=== PATIENT | female | born 1980 | race Caucasian/White ===

== ENCOUNTER → 2016-11-11 | Outpatient (REF) | payer BC, OTHER ==
[~2016-11-11] MED LIST: /ACETCOD2T PO; /METH500TA PO; CYCL10TA3 PO; LIDO5OI EXT; SERT-138 PO; SUMA100T2 PO; trisprintec PO
== END ==
LOC: M SFHCCLAY 16:53
PROVIDERS: ATTEND Family Medicine
DX: D23.72 Other benign neoplasm of skin of left lower limb, including hip (principal)

== ENCOUNTER → 2017-04-07 | Outpatient (CLI) | payer OTHER ==
[2017-04-07 13:55] LABS: CONTROL LINE HCG INT CTR LINE PRESENT; HCG, SERUM QUALITATIVE POSITIVE (NEGATIVE)
[2017-04-07 14:28] LABS: HCG, SERUM QUANTITATIVE 7886 MIU/ML
== END ==
LOC: M LAB 13:16
DX: N92.6 Irregular menstruation, unspecified (principal)
CPT/HCPCS: 84703

== ENCOUNTER → 2017-10-12 | Outpatient (CLI) | payer OTHER | LOC: M RAD 07:09 | DX: Z34.83 Encounter for supervision of other normal pregnancy, third trimester (principal); Z3A.31 31 weeks gestation of pregnancy | CPT/HCPCS: 76820 ==

== ENCOUNTER → 2017-10-19 | Outpatient (CLI) | payer OTHER ==
[2017-10-19 08:28] LABS: GLUCOSE, FASTING 91 MG/DL (LESS THAN 95)
[2017-10-19 09:54] LABS: 1 HR GLUCOSE 154 MG/DL (LESS THAN 180)
[2017-10-19 11:00] LABS: 2 HR GLUCOSE 134 MG/DL (LESS THAN 155)
[2017-10-19 11:54] LABS: 3 HR GLUCOSE 135 MG/DL (LESS THAN 140)
== END ==
LOC: M LAB 07:31
DX: O99.810 Abnormal glucose complicating pregnancy (principal); Z3A.00 Weeks of gestation of pregnancy not specified
CPT/HCPCS: 82951

== ENCOUNTER → 2018-09-05 | Outpatient (REF) | payer OTHER ==
[~2018-09-05] MED LIST changes: -/ACETCOD2T PO; -/METH500TA PO; +ACET1TAB15 PO; +LIDO1OIN2 EXT; -LIDO5OI EXT; +METH1TAB40 PO
== END ==
LOC: M LAB LCGH 14:05
PROVIDERS: ATTEND Nurse Practitioner Family
DX: D48.9 Neoplasm of uncertain behavior, unspecified (principal)

== ENCOUNTER → 2018-12-27 | Outpatient (CLI) | payer OTHER ==
[2018-12-27 17:00] LABS: HEMATOCRIT 42.9 % (36.0-47.0); HEMOGLOBIN 13.5 g/dl (12.0-15.5); MEAN CORPUSCULAR HEMOGLOBIN 26.4 pg (27.0-33.0); MEAN CORPUSCULAR HGB CONC 31.5 g/dl (32.0-36.5); MEAN CORPUSCULAR VOLUME 83.8 fl (80.0-96.0); PLATELET COUNT, AUTOMATED 218 10^3/uL (150-450); RED BLOOD COUNT 5.12 10^6/uL (4.00-5.40); WHITE BLOOD COUNT 5.5 10^3/uL (4.0-10.0)
[2018-12-27 17:33] LABS: BLOOD UREA NITROGEN 10 MG/DL (7-18); CALCIUM LEVEL 9.1 MG/DL (8.5-10.1); CARBON DIOXIDE LEVEL 29 MEQ/L (21-32); CHLORIDE LEVEL 105 MEQ/L (98-107); CREATININE FOR GFR 0.87 MG/DL (0.55-1.30); GLOMERULAR FILTRATION RATE > 60.0 (>60); GLUCOSE, FASTING 78 MG/DL (70-100); POTASSIUM SERUM 4.4 MEQ/L (3.5-5.1); SODIUM LEVEL 140 MEQ/L (136-145)
== END ==
LOC: M WUC 12:21
PROVIDERS: ATTEND Family Medicine
DX: F41.9 Anxiety disorder, unspecified (principal)

== ENCOUNTER → 2019-08-02 | Outpatient (CLI) | payer OTHER ==
[~2019-08-02] MED LIST changes: +DEBL1TAB PO; +VENL75TA2 PO; +VITA50005 PO
== END ==
LOC: M LABSMTC 10:11
PROVIDERS: ATTEND Anesthesiology
DX: Z01.818 Encounter for other preprocedural examination (principal); Z11.59 Encounter for screening for other viral diseases

== ENCOUNTER 2019-08-04 06:47 | Day surgery (SDC) | payer OTHER ==
[~2019-08-04] VITALS: Ht 165.1 cm; Wt 66.6 kg
[2019-08-04 07:34] LABS: HEMATOCRIT 40.8 % (36.0-47.0); HEMOGLOBIN 13.1 g/dl (12.0-15.5); MEAN CORPUSCULAR HEMOGLOBIN 26.6 pg (27.0-33.0); MEAN CORPUSCULAR HGB CONC 32.1 g/dl (32.0-36.5); MEAN CORPUSCULAR VOLUME 82.8 fl (80.0-96.0); PLATELET COUNT, AUTOMATED 205 10^3/uL (150-450); RED BLOOD COUNT 4.93 10^6/uL (4.00-5.40); WHITE BLOOD COUNT 4.8 10^3/uL (4.0-10.0)
[2019-08-04] MEDS ORDERED: MIDAZOLAM INJ 2MG/2ML VIAL (J2250 PER 1MG) As Ordered ONE (08:08)
[2019-08-04] MEDS ORDERED: LIDOCAINE 2% 100MG/5ML SDV (FOR ANES.) As Ordered ONE (08:08)
[2019-08-04] MEDS ORDERED: propofoL 200 MG/20 ML VIAL As Ordered ONE ×2 (08:08→09:33)
[2019-08-04] MEDS ORDERED: fentaNYL 100 MCG/2 ML INJECTION (J3010) As Ordered ONE (08:08)
[2019-08-04] MEDS ORDERED: ROCURONIUM BROMIDE 50 MG/5 ML VIAL As Ordered ONE (08:08)
[2019-08-04] MEDS ORDERED: BUPIVACAINE/EPIN 0.25% 30 ML VIAL As Ordered ONE (08:34)
[2019-08-04] MEDS ORDERED: BUPIVACAINE HCL 0.25% 30ML VIAL As Ordered ONE (08:35)
[2019-08-04] MEDS ORDERED: KETOROLAC 60 MG/2 ML VIAL As Ordered ONE (09:05)
[2019-08-04] MEDS ORDERED: METOCLOPRAMIDE INJ 10MG/2ML VIAL (J2765 PER 1) As Ordered ONE (09:05)
[2019-08-04] MEDS ORDERED: ONDANSETRON 4MG/2ML VIAL As Ordered ONE (09:05)
[2019-08-04] MEDS ORDERED: ACETAMINOPHEN 1000MG 100ML IV BTL (OFIRMEV) (J0131 PER 10MG) As Ordered ONE (09:05)
[2019-08-04] MEDS ORDERED: dexameTHASONE 4 MG/ML 1ML VIAL (J1100 PER 1MG) As Ordered ONE (09:05)
[2019-08-04] MEDS ORDERED: SUGAMMADEX SODIUM 500 MG/5 ML VIAL (BRIDION) As Ordered ONE ×2 (09:24→09:25)
[2019-08-04] MEDS ORDERED: LR 1,000 ML IV SCH (10:00)
[2019-08-04] MEDS ORDERED: fentaNYL 100 MCG/2 ML INJECTION (J3010) IV PRN (10:00)
[2019-08-04] MEDS ORDERED: oxyCODONE 5MG TAB PO PRN (10:00)
[2019-08-04] MEDS ORDERED: HYDROMORPHONE HCL 0.5 MG/ 0.5 ML SYRINGE (J1170 PER 1) IV PRN (10:00)
[2019-08-04] MEDS ORDERED: ONDANSETRON 4MG/2ML VIAL IV PRN (10:00)
[2019-08-04] MEDS ORDERED: PERCOCET 5MG/325MG TAB PO PRN (10:15)
[2019-08-04 11:23] VITALS: BP 109/71
[2019-08-04] MEDS ORDERED: IBUPROFEN 800 MG TAB PO SCH (15:00)
--- NOTE | 2019-08-08 15:37 | RO ---
DATE OF PROCEDURE: 08/04/2019 Lisa is a 38-year-old female multiparity who desires permanent tubal sterilization. After counseling in the office, a decision was made for bilateral tubal ligation in the form of removing the entire tube. PREOPERATIVE DIAGNOSIS: Multiparity, desires permanent sterilization. POSTOPERATIVE DIAGNOSIS: Multiparity, desires permanent sterilization. PROCEDURE: Bilateral salpingectomy. SURGEON: Dr. Bertrand Baron. ANESTHESIA: General. COMPLICATIONS: None. ESTIMATED BLOOD LOSS: Less than 10 mL. SPECIMEN SENT TO THE LAB: Bilateral tubes. FINDINGS: Normal-appearing tubes and ovaries, retroverted uterus. DESCRIPTION OF PROCEDURE: After obtaining informed consent, the patient was taken to the operating room where general anesthetic was found to be adequate. She was then draped and prepped in the usual sterile fashion in the dorsal lithotomy position. At this point a Zuñiga catheter was placed in the bladder for drainage. A uterine manipulator was placed. We then turned our attention to the abdomen where a 5 mm infraumbilical incision was made. Using the Veress needle the abdomen was insufflated with CO2 gas to approximately 3.5 liters. We then placed a 5 mm scope then an 8 mm right lateral port was placed. The patient was placed in Trendelenburg. The fallopian tubes were identified using the CHARLY Harmonic scalpel. The fallopian tubes were removed from the fimbriated all the way up to the cornual area. Both tubes were removed and sent to pathology. Good hemostasis noted. Pelvis copiously irrigated with normal saline and suctioned out. Attention then turned to the abdomen where trocars were removed. The incisions were closed using #3-0 Vicryl and Dermabond 0.25% Marcaine was placed for postoperative pain. The patient tolerated procedure well. She was then transferred to recovery room in stable condition.
== END 2019-08-04 11:30 | disposition home or self-care (01) ==
LOC: M SDC 06:47
PROVIDERS: ATTEND Obstetrics & Gynecology
DX: Z30.2 Encounter for sterilization (principal); F41.9 Anxiety disorder, unspecified; F32.9 Major depressive disorder, single episode, unspecified; Z88.5 Allergy status to narcotic agent; Z88.8 Allergy status to other drugs, medicaments and biological substances
CPT/HCPCS: 36415; 58661; 81025; 85027; 86850; 86900; 86901; 88302; J0131; J1100; J1885; J2250; J2405; J2765; J3010

== ENCOUNTER → 2020-08-16 | Outpatient (REF) | payer OTHER ==
[2020-08-16 16:06] LABS: HEMATOCRIT 42.1 % (36.0-47.0); MEAN CORPUSCULAR HEMOGLOBIN 25.9 pg (27.0-33.0); MEAN CORPUSCULAR HGB CONC 30.9 g/dl (32.0-36.5); PLATELET COUNT, AUTOMATED 232 10^3/uL (150-450); RED BLOOD COUNT 5.01 10^6/uL (4.00-5.40); WHITE BLOOD COUNT 5.1 10^3/uL (4.0-10.0)
[2020-08-16 16:44] LABS: ALT/SGPT 16 U/L (12-78); BILIRUBIN,TOTAL 0.5 MG/DL (0.2-1.0); BLOOD UREA NITROGEN 10 MG/DL (7-18); CALCIUM LEVEL 9.1 MG/DL (8.5-10.1); CARBON DIOXIDE LEVEL 31 MEQ/L (21-32); CHLORIDE LEVEL 105 MEQ/L (98-107); CREATININE FOR GFR 0.88 MG/DL (0.55-1.30); FREE T4 0.89 NG/DL (0.76-1.46); GLOMERULAR FILTRATION RATE > 60.0 (>60); GLUCOSE, FASTING 90 MG/DL (70-100); POTASSIUM SERUM 4.1 MEQ/L (3.5-5.1); SODIUM LEVEL 139 MEQ/L (136-145); TOTAL PROTEIN 6.9 GM/DL (6.4-8.2)
== END ==
LOC: M SFHCCLAY 11:39
PROVIDERS: ATTEND Family Medicine
DX: F32.1 Major depressive disorder, single episode, moderate (principal); E55.9 Vitamin D deficiency, unspecified

== ENCOUNTER → 2021-03-27 | Outpatient (REF) | payer OTHER ==
[~2021-03-27] MED LIST changes: +ERGO500029 PO; -VITA50005 PO
== END ==
LOC: M LAB REF 14:44
PROVIDERS: ATTEND Obstetrics & Gynecology
DX: Z01.419 Encounter for gynecological examination (general) (routine) without abnormal findings (principal)

== ENCOUNTER → 2021-05-01 | Outpatient (CLI) | payer OTHER | LOC: M WUC 13:15 | PROVIDERS: ATTEND Physician Assistant | DX: R05.9 Cough, unspecified (principal) ==

== ENCOUNTER → 2021-05-15 | Outpatient (CLI) | payer OTHER ==
[2021-05-15 17:06] LABS: ESTRADIOL 44.8 PG/ML; FOLLICLE STIMULATING HORMONE 7.2 mIU/mL; LUTEINIZING HORMONE 2.4 mIU/mL; PROGESTERONE 0.6 NG/ML
== END ==
LOC: M WUC 12:23
PROVIDERS: ATTEND Obstetrics & Gynecology
DX: F52.0 Hypoactive sexual desire disorder (principal)

== ENCOUNTER → 2022-03-16 | Outpatient (REF) | payer OTHER | LOC: M SFHCCLAY 15:22 | PROVIDERS: ATTEND Physician Assistant | DX: R05.9 Cough, unspecified (principal) ==

== ENCOUNTER → 2022-05-11 | Outpatient (CLI) | payer OTHER ==
[2022-05-11 17:05] LABS: ESTRADIOL 57.1 PG/ML; FOLLICLE STIMULATING HORMONE 8.1 mIU/ML; LUTEINIZING HORMONE 4.4 mIU/ML
[2022-05-11 17:07] LABS: PROGESTERONE 0.21 NG/ML
[2022-05-15 12:09] LABS: TESTOSTERONE FREE (DIRECT) 0.3 pg/mL (0.0-4.2)
== END ==
LOC: M WUC 13:20
PROVIDERS: ATTEND Obstetrics & Gynecology
DX: F52.0 Hypoactive sexual desire disorder (principal); E34.9 Endocrine disorder, unspecified; R53.83 Other fatigue

== ENCOUNTER → 2022-05-13 | Outpatient (REF) | payer OTHER | LOC: M SFHCCLAY 12:00 | PROVIDERS: ATTEND Family Medicine | DX: B34.9 Viral infection, unspecified (principal) ==

== ENCOUNTER → 2022-05-15 | Outpatient (CLI) | payer OTHER | LOC: M CLY 14:08 | PROVIDERS: ATTEND Physician Assistant | DX: R05.1 Acute cough (principal) ==

== ENCOUNTER → 2022-07-08 | Outpatient (REF) | payer OTHER | LOC: M LAB REF 16:48 | PROVIDERS: ATTEND Physician Assistant | DX: R30.0 Dysuria (principal) ==

== ENCOUNTER → 2024-05-24 | Outpatient (REF) | payer OTHER ==
[2024-05-24 18:27] LABS: FOLLICLE STIMULATING HORMONE 15.6 mIU/ML
[2024-05-24 18:28] LABS: LUTEINIZING HORMONE 51.1 mIU/ML; PROGESTERONE 0.8 NG/ML; THYROID STIMULATING HORMONE 1.642 uIU/ML (0.55-4.78)
== END ==
LOC: M LABDRAWC 14:33
PROVIDERS: ATTEND Obstetrics & Gynecology
DX: N92.1 Excessive and frequent menstruation with irregular cycle (principal)

== ENCOUNTER → 2024-05-26 | Outpatient (CLI) | payer OTHER | LOC: M RAD 14:40 | PROVIDERS: ATTEND Obstetrics & Gynecology | DX: R10.2 Pelvic and perineal pain (principal); N83.291 Other ovarian cyst, right side; N83.292 Other ovarian cyst, left side ==

== ENCOUNTER → 2024-05-29 | Outpatient (REF) | payer OTHER ==
[2024-05-29 12:40] LABS: HEMOGLOBIN A1c 5.3 % (4.0-6.0)
[2024-05-29 13:06] LABS: ALBUMIN 3.3 G/DL (3.2-5.2); ALKALINE PHOSPHATASE 48 U/L (35-104); ALT/SGPT 15 U/L (7.0-40); AST/SGOT 10 U/L (<34); BILIRUBIN,TOTAL 0.6 MG/DL (0.3-1.2); BLOOD UREA NITROGEN 8 MG/DL (9-23); CALCIUM LEVEL 8.6 MG/DL (8.5-10.1); CARBON DIOXIDE LEVEL 27 MMOL/L (20-31); CHLORIDE LEVEL 107 MMOL/L (98-107); CHOLESTEROL LEVEL 194 MG/DL (<200); GLOMERULAR FILTRATION RATE > 60.0 (>58); GLUCOSE, FASTING 86 MG/DL (60-100); HDL CHOLESTEROL 71.7 MG/DL (>40); LDL CHOLESTEROL 103.1 MG/DL (<100); NON-HDL-C 122.3 MG/DL; POTASSIUM SERUM 4.5 MMOL/L (3.5-5.1); SODIUM LEVEL 142 MMOL/L (136-145); TOTAL PROTEIN 6.1 G/DL (5.7-8.2); TRIGLYCERIDES LEVEL 96 MG/DL (<150)
[2024-05-29 13:07] LABS: FREE T4 1.15 NG/DL (0.89-1.76)
[2024-05-29 13:08] LABS: THYROID STIMULATING HORMONE 1.297 uIU/ML (0.55-4.78)
== END ==
LOC: M SFHCCLAY 08:20
PROVIDERS: ATTEND Physician Assistant
DX: Z00.00 Encounter for general adult medical examination without abnormal findings (principal); K21.9 Gastro-esophageal reflux disease without esophagitis; F41.9 Anxiety disorder, unspecified

== ENCOUNTER → 2024-07-27 | Outpatient (REF) | payer OTHER ==
[2024-07-27 15:07] LABS: BLOOD UREA NITROGEN 8 MG/DL (9-23); CALCIUM LEVEL 9.1 MG/DL (8.5-10.1); CARBON DIOXIDE LEVEL 30 MMOL/L (20-31); CHLORIDE LEVEL 105 MMOL/L (98-107); CREATININE FOR GFR 0.76 MG/DL (0.55-1.30); GLOMERULAR FILTRATION RATE > 90.0 (>58); GLUCOSE, FASTING 108 MG/DL (60-100); POTASSIUM SERUM 3.7 MMOL/L (3.5-5.1); SODIUM LEVEL 140 MMOL/L (136-145)
== END ==
LOC: M LABWUC 13:43
PROVIDERS: ATTEND Physician Assistant
DX: F41.9 Anxiety disorder, unspecified (principal)

== ENCOUNTER → 2024-12-15 | Outpatient (CLI) | payer OTHER ==
[2024-12-15 12:47] LABS: PLATELET COUNT, AUTOMATED 182 10^3/uL (150-450)
[2024-12-15 12:48] LABS: ALT/SGPT 18.0 U/L (7.0-40); AST/SGOT 16.0 U/L (<34); CALCIUM LEVEL 9.2 MG/DL (8.5-10.1); CARBON DIOXIDE LEVEL 28.0 MMOL/L (20-31); CHLORIDE LEVEL 107.0 MMOL/L (98-107); CHOLESTEROL LEVEL 204.0 MG/DL (<200); CHOLESTEROL RISK RATIO 2.79 (<5); CREATININE FOR GFR 0.91 MG/DL (0.55-1.30); GLOMERULAR FILTRATION RATE 80.8 (>58); IRON (FE) 63.0 UG/DL (50-170); LDL CHOLESTEROL 114.9 MG/DL (<100); NON-HDL-C 131.1 MG/DL; PERCENT SATURATION 19.6 % (13.2-45.0); POTASSIUM SERUM 4.2 MMOL/L (3.5-5.1); SODIUM LEVEL 144.0 MMOL/L (136-145); TRIGLYCERIDES LEVEL 81.0 MG/DL (<150)
[2024-12-15 12:52] LABS: FREE T4 1.1 NG/DL (0.89-1.76)
[2024-12-15 12:53] LABS: ESTRADIOL 63.5 PG/ML
[2024-12-15 12:54] LABS: PROGESTERONE 11.26 NG/ML
[2024-12-15 12:55] LABS: TOTAL 25(OH) VITAMIN D 29.5 NG/ML (20.0-100.0)
[2024-12-15 12:57] LABS: VITAMIN B12 LEVEL 473.0 PG/ML (211-911)
[2024-12-15 12:58] LABS: ESTIMATED AVERAGE GLUCOSE 103.0 MG/DL (60-110)
[2024-12-17 06:53] LABS: SEX HORMONE BINDING GLOBULIN 138.0 nmol/L (17-124)
[2024-12-18 08:48] LABS: INSULIN LEVEL 5.5 uIU/mL (<=18.4)
== END ==
LOC: M WUC 08:08
PROVIDERS: ATTEND Nurse Practitioner Family
DX: N95.1 Menopausal and female climacteric states (principal); Z13.1 Encounter for screening for diabetes mellitus; Z13.6 Encounter for screening for cardiovascular disorders; Z13.0 Encounter for screening for diseases of the blood and blood-forming organs and certain disorders involving the immune mechanism; R53.83 Other fatigue; E55.9 Vitamin D deficiency, unspecified